=== PATIENT | female | born 1980 | race American Indian/Alaskan Native ===

== ENCOUNTER 2016-06-26 07:39 | Emergency (ER) | payer OTHER ==
[2016-06-26 08:10] VITALS: BP 125/81
[2016-06-26 09:42] LABS: Basophils % (Auto) 0.7 % (0.0-1.8); Eosinophils % (Auto) 0.9 % (0.0-4.3); Hematocrit 32.6 % (30.3-42.9); Hemoglobin 9.9 gm/dl (10.1-14.3); Mean Corpuscular HGB Conc 30 % (30-34); Mean Corpuscular Volume 74 fl (79-97); Platelet Count 301 K/mm3 (140-440); Red Blood Count 4.43 M/mm3 (3.65-5.03); White Blood Count 6.1 K/mm3 (4.5-11.0)
[2016-06-26 09:43] LABS: Mean Corpuscular Hemoglobin 22 pg (28-32)
[2016-06-26 09:57] LABS: Bilirubin,Urine NEG (Negative); Blood,Urine LG (Negative); Ketones,Urine NEG (Negative); Leukocyte Esterase,Urine TR (Negative); Nitrite,Urine NEG (Negative); Urobilinogen,Urine < 2.0 mg/dL (<2.0)
[2016-06-26 09:58] LABS: RBC,Urine > 182.0 /HPF (0.0-6.0)
== END 2016-06-26 21:21 | disposition left against medical advice (07) ==
LOC: ED 07:39
DX: R10.2 Pelvic and perineal pain (principal); M54.5 Low back pain; N93.9 Abnormal uterine and vaginal bleeding, unspecified; Z53.21 Procedure and treatment not carried out due to patient leaving prior to being seen by health care provider
CPT/HCPCS: 36415; 81001; 84702; 85025; 86850; 86900; 86901

== ENCOUNTER 2016-06-27 08:03 | Emergency (ER) | payer SELFPAY ==
[2016-06-27 08:08] VITALS: BP 128/79
[2016-06-27 08:34] LABS: Basophils % (Auto) 1.1 % (0.0-1.8); Eosinophils % (Auto) 2.4 % (0.0-4.3); Hematocrit 32.5 % (30.3-42.9); Hemoglobin 9.9 gm/dl (10.1-14.3); Mean Corpuscular HGB Conc 31 % (30-34); Mean Corpuscular Volume 74 fl (79-97); Platelet Count 283 K/mm3 (140-440); Red Cell Distribution Width 19.3 % (13.2-15.2); White Blood Count 3.9 K/mm3 (4.5-11.0)
[2016-06-27 08:38] LABS: Mean Corpuscular Hemoglobin 23 pg (28-32)
[2016-06-27 09:01] LABS: Bilirubin,Urine NEG (Negative); Blood,Urine LG (Negative); Ketones,Urine NEG (Negative); Leukocyte Esterase,Urine NEG (Negative); Mucus,Urine 2+ /HPF; Nitrite,Urine NEG (Negative); Urobilinogen,Urine < 2.0 mg/dL (<2.0)
[2016-06-27 09:04] LABS: RBC,Urine > 182.0 /HPF (0.0-6.0)
--- NOTE | 2016-07-01 01:03 | ED Elopement Review ---
ED Pt Elopement review - Results review Lab results: Laboratory Tests 06/27/16 06/27/16 06/27/16 08:12 08:12 08:15 WBC 3.9 L RBC 4.40 Hgb 9.9 L Hct 32.5 MCV 74 L MCH 23 L MCHC 31 RDW 19.3 H Plt Count 283 Lymph % (Auto) 38.0 H [place] % (Auto) 10.1 H Eos % (Auto) 2.4 Baso % (Auto) 1.1 Lymph # 1.5 [place] # 0.4 Eos # 0.1 Baso # 0.0 Seg Neutrophils % 48.4 Seg Neutrophils # 1.9 HCG, Quant 26.14 H Urine Color Urine Turbidity Urine pH Ur Specific [place] Urine Protein Urine Glucose (UA) Urine Ketones Urine Blood Urine Nitrite Urine Bilirubin Urine Urobilinogen Ur Leukocyte Esterase Urine WBC (Auto) Urine RBC (Auto) U Epithel Cells (Auto) Urine Mucus Blood Type A POSITIVE Antibody Screen Negative 06/27/16 08:42 WBC RBC Hgb Hct MCV MCH MCHC RDW Plt Count Lymph % (Auto) [place] % (Auto) Eos % (Auto) Baso % (Auto) Lymph # [place] # Eos # Baso # Seg Neutrophils % Seg Neutrophils # HCG, Quant Urine Color Yellow Urine Turbidity Clear Urine pH 5.0 Ur Specific [place] 1.028 Urine Protein 100 mg/dl Urine Glucose (UA) Neg Urine Ketones Neg Urine Blood Lg Urine Nitrite Neg Urine Bilirubin Neg Urine Urobilinogen < 2.0 Ur Leukocyte Esterase Neg Urine WBC (Auto) 3.0 Urine RBC (Auto) > 182.0 U Epithel Cells (Auto) 4.0 Urine Mucus 2+ Blood Type Antibody Screen - Call Back decision Pt Call Back Decision: Call pt to return to ED [facility] (needs to be ruled out for ectopic)
== END 2016-06-27 12:56 | disposition left against medical advice (07) ==
LOC: ED 08:03
DX: O26.891 Other specified pregnancy related conditions, first trimester (principal); N93.9 Abnormal uterine and vaginal bleeding, unspecified; R10.9 Unspecified abdominal pain; Z3A.01 Less than 8 weeks gestation of pregnancy
CPT/HCPCS: 36415; 81001; 84702; 85025; 86850; 86900; 86901